=== PATIENT | female | born 1990 | race African-American/Black ===

== ENCOUNTER 2017-10-15 16:15 | Inpatient (IN) | payer OTHER ==
[2017-10-15 16:48] LABS: BASO % 0.2 % (0.0-1.0); EOS # 0.1 10^3/uL (0.0-0.50); EOS % 1.6 % (0.0-3.0); HEMATOCRIT 19.1 % (36.0-47.0); IMMATURE GRANULOCYTE % 0.2 % (0-3.0); LYMPH # 1.7 10^3/uL (1.5-6.5); LYMPH % 30.3 % (24.0-44.0); MEAN CORPUSCULAR HEMOGLOBIN 15.6 pg (27.0-33.0); MEAN CORPUSCULAR HGB CONC 25.1 g/dl (32.0-36.5); MONO # 0.7 10^3/uL (0.0-0.8); MONO % 11.8 % (0.0-5.0); NEUTROPHILS # 3.1 10^3/uL (1.8-7.7); NEUTROPHILS % 55.9 % (36.0-66.0); PLATELET COUNT, AUTOMATED 306 10^3/uL (150-450); RED BLOOD COUNT 3.08 10^6/uL (4.00-5.40); RED CELL DISTRIBUTION WIDTH 21.2 % (11.5-14.5); WHITE BLOOD COUNT 5.5 10^3/uL (4.0-10.0)
[2017-10-15 16:56] LABS: ADD MORPHOLOGY? YES; HEMOGLOBIN 4.8 g/dl (12.0-15.5); POS COUNT POS FLAG; POSITIVE MORPH POS FLAG
[2017-10-15 17:07] LABS: HYPOCHROMASIA 3+
[2017-10-15 17:08] LABS: ANISOCYTOSIS 3+
[2017-10-15 17:09] LABS: OVALOCYTES 1+; POIKILOCYTOSIS 3+
[2017-10-15 17:10] LABS: SCHISTOCYTES 1+
[2017-10-15 17:12] LABS: POLYCHROMASIA 1+
[2017-10-15 17:14] LABS: PLATELET ESTIMATE NORMAL (NORMAL); TARGET CELLS 1+; TEAR DROP CELLS 1+
[2017-10-15 17:27] LABS: ANION GAP 7 MEQ/L (8-16); BLOOD UREA NITROGEN 13 MG/DL (7-18); CALCIUM LEVEL 8.5 MG/DL (8.5-10.1); CARBON DIOXIDE LEVEL 27 MEQ/L (21-32); CHLORIDE LEVEL 105 MEQ/L (98-107); CREATININE FOR GFR 0.83 MG/DL (0.55-1.30); GLOMERULAR FILTRATION RATE > 60.0 (>60); GLUCOSE, FASTING 94 MG/DL (70-100); POTASSIUM SERUM 3.6 MEQ/L (3.5-5.1); SODIUM LEVEL 139 MEQ/L (136-145)
[2017-10-15 18:14] LABS: FERRITIN 2 NG/ML (8-252); IRON (FE) 20 UG/DL (50-170); PERCENT SATURATION 4.7 % (13.2-45.0); TOTAL IRON BINDING CAPACITY 424 UG/DL (250-450)
[2017-10-15 18:50] LABS: IMMEDIATE SPIN CROSSMATCH 1 2
[2017-10-15] MEDS: IRON POLYSAC (NIFEREX) 150 MG CAP PO (21:00)
[2017-10-15] MEDS ORDERED: NS 1,000 ML IV ×2 (21:09)
[2017-10-15] MEDS ORDERED: ACETAMINOPHEN TAB 650MG DOSE (2X325MG) PO (21:15)
[2017-10-15] MEDS ORDERED: ONDANSETRON 4 MG TAB (S0181) PO (21:15)
[2017-10-15] MEDS ORDERED: PERCOCET 5MG/325MG TAB PO (21:15)
[2017-10-16 00:21] LABS: IMMEDIATE SPIN CROSSMATCH 1 2
[2017-10-16] MEDS: NS 1,000 ML IV (04:09)
[2017-10-16 07:52] LABS: HEMATOCRIT 33.3 % (36.0-47.0); MEAN CORPUSCULAR VOLUME 69.8 fl (80.0-96.0); PLATELET COUNT, AUTOMATED 340 10^3/uL (150-450); RED BLOOD COUNT 4.77 10^6/uL (4.00-5.40); RED CELL DISTRIBUTION WIDTH 26.5 % (11.5-14.5); WHITE BLOOD COUNT 7.1 10^3/uL (4.0-10.0)
[2017-10-16 07:53] LABS: REASON FOR REVIEW RBC MORPHOLOGY; SLIDE REVIEW Report; SOURCE PERIPHERAL SMEAR
[2017-10-16] MEDS: IRON POLYSAC (NIFEREX) 150 MG CAP PO ×2 (09:47→21:24)
[2017-10-16] MEDS: IRON DEXTRAN INJ 25 MG in NS 50 ML IV (10:40)
[2017-10-16] MEDS ORDERED: IRON DEXTRAN INJ 75 MG in NS 100 ML IV (11:00)
[2017-10-16] MEDS ORDERED: methylPREDNISolone INJ 125 MG/2 ML VIAL (J2930) As Ordered (11:02)
[2017-10-16] MEDS ORDERED: MORPHINE 4 MG/ML 1ML VIAL/SYRINGE (J2270) As Ordered (11:04)
[2017-10-16] MEDS: methylPREDNISolone INJ 125 MG/2 ML VIAL (J2930) IV (11:05)
[2017-10-16 11:06] LABS: FOLATE > 24.0 NG/ML (>5.4); VITAMIN B12 LEVEL 1250 PG/ML (247-911)
[2017-10-16] MEDS ORDERED: diphenhydrAMINE INJ 50MG/ML VIAL (J1200) As Ordered (11:06)
[2017-10-16] MEDS: MORPHINE 4 MG/ML 1ML VIAL/SYRINGE (J2270) IV (11:10)
[2017-10-16] MEDS: diphenhydrAMINE INJ 50MG/ML VIAL (J1200) IV (11:10)
[2017-10-16] MEDS ORDERED: FAMOTIDINE INJ 20MG/2ML VIAL (S0028) IVP (11:15)
[2017-10-16] MEDS: FAMOTIDINE IV BAG 20 MG in APPROPRIATE DILUENT 1 EA IV (11:39)
[2017-10-16 12:31] LABS: HEMOGLOBIN 9.3 g/dl (12.0-15.5); MEAN CORPUSCULAR HEMOGLOBIN 20.8 pg (27.0-33.0); MEAN CORPUSCULAR HGB CONC 29.1 g/dl (32.0-36.5); MEAN CORPUSCULAR VOLUME 71.4 fl (80.0-96.0); PLATELET COUNT, AUTOMATED 288 10^3/uL (150-450); RED BLOOD COUNT 4.48 10^6/uL (4.00-5.40); WHITE BLOOD COUNT 16.3 10^3/uL (4.0-10.0)
[2017-10-16] MEDS ORDERED: SLF 3 ML SYR IV (12:45)
[2017-10-16] MEDS: SLF 3 ML SYR IV ×2 (13:53→21:24)
[2017-10-16 15:37] LABS: HEMATOCRIT 33.5 % (36.0-47.0); HEMOGLOBIN 10.2 g/dl (12.0-15.5)
[2017-10-16 15:38] LABS: POSITIVE MORPH POS FLAG
[2017-10-16 15:45] LABS: SICKLE CELL SCREEN NEGATIVE (NEGATIVE)
[2017-10-16 19:49] LABS: HEMATOCRIT 33.5 % (36.0-47.0); HEMOGLOBIN 10.1 g/dl (12.0-15.5)
[2017-10-16 20:17] LABS: MAGNESIUM LEVEL 1.9 MG/DL (1.8-2.4)
[2017-10-17 02:36] LABS: HEMATOCRIT 34.4 % (36.0-47.0); HEMOGLOBIN 10.4 g/dl (12.0-15.5)
[2017-10-17 02:55] LABS: ANION GAP 11 MEQ/L (8-16); BLOOD UREA NITROGEN 6 MG/DL (7-18); CARBON DIOXIDE LEVEL 25 MEQ/L (21-32); CHLORIDE LEVEL 106 MEQ/L (98-107); GLOMERULAR FILTRATION RATE > 60.0 (>60); GLUCOSE, FASTING 105 MG/DL (70-100); POTASSIUM SERUM 3.4 MEQ/L (3.5-5.1); SODIUM LEVEL 142 MEQ/L (136-145)
[2017-10-17] MEDS: SLF 3 ML SYR IV ×2 (06:13→14:09)
[2017-10-17] MEDS: IRON POLYSAC (NIFEREX) 150 MG CAP PO (08:22)
[2017-10-17 09:56] LABS: HEMATOCRIT 36.6 % (36.0-47.0); HEMOGLOBIN 10.8 g/dl (12.0-15.5)
[2017-10-17 10:32] LABS: ALBUMIN 3.6 GM/DL (3.2-5.2); ALBUMIN/GLOBULIN RATIO 0.68 (1.00-1.93); ALKALINE PHOSPHATASE 66 U/L (45-117); ALT/SGPT 21 U/L (12-78); ANION GAP 11 MEQ/L (8-16); AST/SGOT 19 U/L (7-37); BILIRUBIN,TOTAL 0.9 MG/DL (0.2-1.0); BLOOD UREA NITROGEN 7 MG/DL (7-18); CARBON DIOXIDE LEVEL 25 MEQ/L (21-32); CHLORIDE LEVEL 106 MEQ/L (98-107); CREATININE FOR GFR 0.89 MG/DL (0.55-1.30); GLOMERULAR FILTRATION RATE > 60.0 (>60); GLUCOSE, FASTING 68 MG/DL (70-100); POTASSIUM SERUM 2.9 MEQ/L (3.5-5.1); RHEUMATOID FACTOR QUANT < 10.0 IU/ML (<15.0); SODIUM LEVEL 142 MEQ/L (136-145); THYROID STIMULATING HORMONE 0.955 uIU/ML (0.358-3.740); TOTAL PROTEIN 8.9 GM/DL (6.4-8.2)
[2017-10-17] MEDS: POTASSIUM CHLORIDE 10 MEQ SR TABLET PO ×2 (11:03→15:40)
[2017-10-17 13:39] LABS: HEMATOCRIT 32.9 % (36.0-47.0); HEMOGLOBIN 9.7 g/dl (12.0-15.5)
[2017-10-17 15:27] LABS: POTASSIUM SERUM 3.2 MEQ/L (3.5-5.1)
[2017-10-18 12:21] LABS: HIV 1&2 SCREEN CENTAUR NEGATIVE (NEGATIVE)
[2017-10-18 14:18] LABS: QUANTIFERON GOLD TB Negative (Negative); TB Test (QFT) Antigen 0.05 IU/mL (.); TB Test (QFT) Mitogen 5.35 IU/mL (.); TB Test (QFT) Nil 0.05 IU/mL (.)
[2017-10-19 00:12] LABS: ANTI DOUBLE STRAND-DNA AB 1 IU/mL (0-9); ANTINUCLEAR ANTIBODIES DIRECT Negative (Negative); Lyme Disease IgG/IgM Antibodie <0.91 ISR (0.00-0.90); Lyme Disease IgM Ab Quantitati <0.80 index (0.00-0.79)
== END 2017-10-17 18:55 | disposition home or self-care (01) | DRG 812 ==
LOC: M PCU 10-16 11:24 → M ED 16:15 → M ED INP 22:41 → M PED 23:42
PROC: 30233N1 Transfusion of Nonautologous Red Blood Cells into Peripheral Vein, Percutaneous Approach (ICD-10-PCS; principal; 2017-10-15)
DX: D50.0 Iron deficiency anemia secondary to blood loss (chronic) (principal); E86.0 Dehydration; D25.9 Leiomyoma of uterus, unspecified; T45.4X5A Adverse effect of iron and its compounds, initial encounter; R76.11 Nonspecific reaction to tuberculin skin test without active tuberculosis; E87.6 Hypokalemia; I44.0 Atrioventricular block, first degree; R06.02 Shortness of breath; M54.5 Low back pain; Z88.1 Allergy status to other antibiotic agents; I44.1 Atrioventricular block, second degree

== ENCOUNTER → 2017-10-28 | Outpatient (REF) | payer OTHER ==
[2017-10-28 14:12] LABS: RETIC HEMOGLOBIN EQUIVALENT 34.1 pg (24-36); RETICULOCYTE # 41.9 10^9/L (17-77); RETICULOCYTE % 0.9 % (0.5-1.5)
[2017-10-28 14:19] LABS: CONTROL LINE HCG INT CTR LINE PRESENT; HCG, SERUM QUALITATIVE NEGATIVE (NEGATIVE)
[2017-10-30 17:28] LABS: HGB SOLUBILITY Negative (Negative)
== END ==
LOC: M LAB REF 13:57
DX: D64.9 Anemia, unspecified (principal)

== ENCOUNTER → 2017-11-11 | Outpatient (REF) ==
[2017-11-12 10:21] LABS: RUBEOLA IgG ANTIBODY 70.6 AU/mL (Immune >29.9)
[2017-11-12 10:21] LABS: HERPES ZOSTER, VARICELLA IgG 1576 index (Immune >165)
== END ==
LOC: M LAB 13:17
DX: Z00.00 Encounter for general adult medical examination without abnormal findings (principal)

== ENCOUNTER → 2017-11-19 | Outpatient (CLI) | payer OTHER | LOC: M RAD 06:43 | DX: D25.0 Submucous leiomyoma of uterus (principal); D25.2 Subserosal leiomyoma of uterus; N85.2 Hypertrophy of uterus | CPT/HCPCS: 76801 ==

== ENCOUNTER → 2017-11-26 | Outpatient (CLI) | payer OTHER | LOC: M RAD 11:15 | DX: Z32.01 Encounter for pregnancy test, result positive (principal); D25.9 Leiomyoma of uterus, unspecified | CPT/HCPCS: 76801 ==

== ENCOUNTER 2017-11-30 10:26 | Emergency (ER) | payer OTHER ==
[2017-11-30] MEDS: NS 1,000 ML IV (11:00)
[2017-11-30] MEDS: MORPHINE 2 MG/ML 1ML SYRINGE (J2270) IV (11:08)
[2017-11-30 11:12] LABS: BASO # 0.1 10^3/uL (0.0-0.2); BASO % 0.4 % (0.0-1.0); EOS # 0.1 10^3/uL (0.0-0.50); EOS % 0.4 % (0.0-3.0); HEMATOCRIT 40.6 % (36.0-47.0); HEMOGLOBIN 12.9 g/dl (12.0-15.5); IMMATURE GRANULOCYTE % 0.2 % (0-3.0); LYMPH # 2.1 10^3/uL (1.5-6.5); LYMPH % 15.8 % (24.0-44.0); MEAN CORPUSCULAR HEMOGLOBIN 26.8 pg (27.0-33.0); MEAN CORPUSCULAR HGB CONC 31.8 g/dl (32.0-36.5); MEAN CORPUSCULAR VOLUME 84.4 fl (80.0-96.0); MONO % 7.6 % (0.0-5.0); NEUTROPHILS % 75.6 % (36.0-66.0); PLATELET COUNT, AUTOMATED 244 10^3/uL (150-450); RED BLOOD COUNT 4.81 10^6/uL (4.00-5.40); WHITE BLOOD COUNT 13.3 10^3/uL (4.0-10.0)
[2017-11-30 11:24] LABS: ADD MORPHOLOGY? YES; POSITIVE MORPH POS FLAG
[2017-11-30 11:34] LABS: ANION GAP 13 MEQ/L (8-16); BLOOD UREA NITROGEN 8 MG/DL (7-18); CALCIUM LEVEL 8.7 MG/DL (8.5-10.1); CARBON DIOXIDE LEVEL 26 MEQ/L (21-32); CHLORIDE LEVEL 101 MEQ/L (98-107); CREATININE FOR GFR 0.71 MG/DL (0.55-1.30); GLOMERULAR FILTRATION RATE > 60.0 (>60); GLUCOSE, FASTING 86 MG/DL (70-100); HCG, SERUM QUANTITATIVE 505 MIU/ML; POTASSIUM SERUM 2.9 MEQ/L (3.5-5.1); SODIUM LEVEL 140 MEQ/L (136-145)
[2017-11-30 11:41] LABS: ANISOCYTOSIS 3+; MICROCYTOSIS 2+; PLATELET ESTIMATE NORMAL (NORMAL); TEAR DROP CELLS 1+
[2017-11-30 11:43] LABS: HYPOCHROMASIA 2+; POIKILOCYTOSIS 1+; POLYCHROMASIA 1+
[2017-11-30] MEDS: POTASSIUM CHLORIDE 10 MEQ SR TABLET PO (12:07)
[2017-11-30] MEDS: MORPHINE 4 MG/ML 1ML VIAL/SYRINGE (J2270) IV (13:18)
== END 2017-11-30 13:58 | disposition home or self-care (01) ==
LOC: M ED 10:26
DX: O03.4 Incomplete spontaneous abortion without complication (principal); D25.9 Leiomyoma of uterus, unspecified; Z3A.08 8 weeks gestation of pregnancy; O99.011 Anemia complicating pregnancy, first trimester; Z88.1 Allergy status to other antibiotic agents; Z88.8 Allergy status to other drugs, medicaments and biological substances
CPT/HCPCS: J2270

== ENCOUNTER 2019-05-13 06:01 | Day surgery (SDC) | payer OTHER ==
[~2019-05-13] VITALS: Ht 165.1 cm; Wt 68.5 kg
[~2019-05-13 06:01] MED LIST: AMLO10TA5 PO; COLA100C5 PO; HYDR-3715 PO; Iron Polysaccharide PO; LIDOCAINE 1% MDV 20ML VIAL SQ PRN; PREN27TA3 PO; VITA500T PO
[2019-05-13] MEDS ORDERED: METHYLENE BLUE 0.5% (5MG/ML) 10 ML AMP (PROVAYBLUE)(Q9968 PER 1MG) As Ordered ONE (06:38)
[2019-05-13] MEDS ORDERED: BUPIVACAINE HCL 0.25% 10 ML VIAL As Ordered ONE (06:38)
[2019-05-13 06:53] LABS: HEMOGLOBIN 10.2 g/dl (12.0-15.5); MEAN CORPUSCULAR HEMOGLOBIN 27.3 pg (27.0-33.0); MEAN CORPUSCULAR HGB CONC 30.9 g/dl (32.0-36.5); MEAN CORPUSCULAR VOLUME 88.5 fl (80.0-96.0); PLATELET COUNT, AUTOMATED 319 10^3/uL (150-450); RED BLOOD COUNT 3.73 10^6/uL (4.00-5.40)
[2019-05-13] MEDS ORDERED: LR 1,000 ML IV ONE (07:00)
[2019-05-13] MEDS ORDERED: ACETAMINOPHEN 650 MG SUPP PR ONE (07:00)
[2019-05-13] MEDS ORDERED: dexameTHASONE 4 MG/ML 1ML VIAL (J1100) As Ordered ONE (07:14)
[2019-05-13] MEDS ORDERED: MIDAZOLAM INJ 2 MG/2 ML VIAL (J2250) As Ordered ONE (07:14)
[2019-05-13] MEDS ORDERED: propofoL 200 MG/20 ML VIAL As Ordered ONE (07:14)
[2019-05-13] MEDS ORDERED: ONDANSETRON 4MG/2ML VIAL (J2405) As Ordered ONE (07:14)
[2019-05-13] MEDS ORDERED: LIDOCAINE 2% INJ 100 MG/5 ML SDV (FOR ANES.) As Ordered ONE (07:14)
[2019-05-13] MEDS ORDERED: fentaNYL 100 MCG/2 ML INJECTION (J3010) As Ordered ONE ×2 (07:14→08:58)
[2019-05-13] MEDS ORDERED: ROCURONIUM BROMIDE 50 MG/5 ML VIAL As Ordered ONE (07:14)
[2019-05-13 07:16] LABS: BLOOD UREA NITROGEN 10 MG/DL (7-18); CARBON DIOXIDE LEVEL 29 MEQ/L (21-32); CHLORIDE LEVEL 106 MEQ/L (98-107); CREATININE FOR GFR 0.83 MG/DL (0.55-1.30); GLOMERULAR FILTRATION RATE > 60.0 (>60); GLUCOSE, FASTING 83 MG/DL (70-100); HCG, SERUM QUANTITATIVE < 1.0 MIU/ML; POTASSIUM SERUM 3.2 MEQ/L (3.5-5.1); SODIUM LEVEL 138 MEQ/L (136-145)
[2019-05-13] MEDS ORDERED: ACETAMINOPHEN 650 MG SUPP As Ordered ONE (07:25)
[2019-05-13] MEDS ORDERED: ESMOLOL INJ 100MG/10ML VIAL As Ordered ONE (08:06)
[2019-05-13] MEDS ORDERED: KETOROLAC 60 MG/2 ML VIAL (J1885) As Ordered ONE (08:07)
[2019-05-13] MEDS ORDERED: SUGAMMADEX SODIUM 500 MG/5 ML VIAL (BRIDION) As Ordered ONE (08:07)
[2019-05-13] MEDS ORDERED: oxyCODONE 5MG TAB PO PRN (10:00)
[2019-05-13] MEDS ORDERED: HYDROMORPHONE HCL 0.5 MG/ 0.5 ML SYRINGE (J1170 PER 1) IV PRN (10:00)
[2019-05-13] MEDS ORDERED: fentaNYL 100 MCG/2 ML INJECTION (J3010) IV PRN (10:00)
[2019-05-13] MEDS ORDERED: ONDANSETRON 4MG/2ML VIAL (J2405) IV PRN (10:00)
[2019-05-13] MEDS ORDERED: LR 1,000 ML IV SCH (10:00)
[2019-05-13 10:08] VITALS: BP 133/79
--- NOTE | 2019-05-19 11:45 | RO ---
DATE OF PROCEDURE: 05/13/2019 PREOPERATIVE DIAGNOSIS: Infertility post myomectomy times two. POSTOPERATIVE DIAGNOSIS: Infertility post myomectomy times two. OPERATION PERFORMED: Operative laparoscopy, chromotubation of tubes, hysteroscopy, dilation and curettage (D and C). OPERATION PERFORMED: Operative laparoscopy, chromotubation, hysteroscopy, dilation and curettage. ESTIMATED BLOOD LOSS: Less than 20 mL. SURGEON: Omega Palomino MD ASSISTANTS: Dr. Rhodes and Dr. Fonseca ANESTHESIA: General plus local anesthetic for intraperitoneal procedures. DESCRIPTION OF PROCEDURE: After adequate time-out, prepped and draped in the lithotomy position, Lubin catheter in the bladder draining clear urine, weighted speculum vagina, cervix was high anterior. We were able to get a single-tooth tenaculum on the anterior lip of the cervix, and we were able to get a uterine sound into the endocervical canal. Uterus is markedly anteverted, anteflexed, and seemed to be fixed to the anterior abdominal wall. On abdominal examination, it appeared that the uterus was at the level of a 16-18-week uterus, although the uterus itself was not that large. A Veress needle was applied. 3.2 liters of CO2 at a flow rate of 14 to a pressure of 15. Visiport was used. Direct entry into the abdomen. No evidence of perforation, hemorrhage, or bleeding. Immediately upon entering the peritoneal cavity, we noticed that the uterus was fixed to the anterior abdominal wall over the midline incision, quite a thick band, probably 4 cm wide and 3 cm thick. Incorporated in that was the anterior wall of the uterus which had the previous myomectomy scar, plus behind it was bowel which was adherent between the bowel and the anterior abdominal wall, fixed, and to the uterus. We tried to get around on either side, but it was quite difficult. We put a port on the left side, a port on the right side. The uterus itself was quite fixed, and the best we could do was see the right ovary and the right tube. The right tube to the fimbriated end was normal. We could not demonstrate the left tube or the left ovary at all because everything was so adherent to the anterior abdominal wall, and the uterus itself was fixed. We did place dye through the uterine cavity under direct visualization. The tube on the right side appeared to fill but did not pass the fundus or what we assumed was the fundus and never spilled out the normal fimbriated end. Therefore, we abandoned that procedure and feel that this lady will either do better with an IVF as opposed to removal and release of the adhesions, bringing down the uterus, and the high likelihood of the possibility of needing to have a hysterectomy because of uncontrolled bleeding and the high risk of injury to the bowel behind it without direct visualization. With that done, both left and right ports were removed, the mainstem port was removed, deep stitch in the umbilical area, superficial stitches, Marcaine 0.25% to the skin, and skin tapes. Going down below, we removed the uterine elevator. We sounded again the uterus depth of 6-7 cm, quite an angle anteriorly because the uterus being fixed to the anterior abdominal wall. Hysteroscope was introduced. The 2.70 scope and reviewed the integrity of the anatomy of the uterine cavity. It appeared to be quite normal. We could not visualize the os on the left side. We could barely visualize the os on the right side, but we did note it was there because we had dye at that junction. Therefore, the integrity of the uterus is complete. We did endometrial sampling and sent off to pathology under separate cover. Again, for fertility, this lady would probably do better with an IVF as opposed to intraoperative intervention to her uterus. The possibility of loss of the uterus and possibly bowel injury. With that done, instruments were removed. Instrument counts were correct, and the patient was sent to recovery in good condition after removing the Lubin catheter.
== END 2019-05-13 11:00 | disposition home or self-care (01) ==
LOC: M SDC 06:01
PROVIDERS: ATTEND Obstetrics & Gynecology
DX: N97.9 Female infertility, unspecified (principal); I10 Essential (primary) hypertension; D50.9 Iron deficiency anemia, unspecified; Z88.8 Allergy status to other drugs, medicaments and biological substances
CPT/HCPCS: 36415; 49320; 58350; 58558; 80048; 84702; 85027; 86850; 86900; 86901; 88305; J1100; J1885; J2250; J2405; J3010; Q9968